=== PATIENT | female | born 1965 | race African-American/Black ===

== ENCOUNTER 2024-02-08 04:21 | Day surgery (SDC) | payer OTHER ==
[2024-02-04 15:31] VITALS: BMI 42.1
[2024-02-08 07:34] VITALS: RESP 18
[2024-02-08] MEDS ORDERED: oxyCODONE HCL 5 MG TABLET PO PRN ×2 (09:21→15:08)
[2024-02-08] MEDS ORDERED: ONDANSETRON 4 MG/2 ML VIAL IVPUSH PRN ×2 (09:21→15:08)
[2024-02-08] MEDS ORDERED: LACTATED RINGERS SOLUTION 1,000 ML IV SCH ×2 (09:30→15:15)
[2024-02-08] MEDS ORDERED: LIDOCAINE HCL 1%, 10 MG/ML (20ML VIAL) ONE ×2 (12:29→14:33)
[2024-02-08] MEDS ORDERED: ONDANSETRON 4 MG/2 ML VIAL ONE (14:06)
[2024-02-08] MEDS ORDERED: LIDOCAINE HCL/PF 2% SDV 5ML VIAL ONE (14:06)
[2024-02-08] MEDS ORDERED: PROPOFOL 40 ML ONE (14:07)
[2024-02-08] MEDS ORDERED: MIDAZOLAM HCL 2 MG/2 ML SINGLE DOSE VIAL ONE (14:07)
[2024-02-08] MEDS: ceFAZolin SODIUM 1 GM VIAL IVPB ONE (14:25)
[2024-02-08] MEDS: LIDOCAINE HCL 1%, 10 MG/ML (20ML VIAL) INF ONE (14:33)
[2024-02-08 16:59] VITALS: PULSE 65; TEMP 97.1
[2024-02-08 17:34] VITALS: BP 124/66
== END 2024-02-08 17:37 | disposition home or self-care (01) ==
LOC: JASU-SURG 04:21
PROVIDERS: ATTEND Surgery
PROC: 0HBU0ZX Excision of Left Breast, Open Approach, Diagnostic (ICD-10-PCS; principal; 2024-02-08 11:00)
DX: D24.2 Benign neoplasm of left breast (principal)
CPT/HCPCS: 19281; 76098-TC-FY; 88307-TC; 94760; A4648